=== PATIENT | male | born 1995 ===

== ENCOUNTER 2023-06-22 08:56 | Outpatient (RCR) | payer OTHER ==
[~2023-06-22 08:56] MED LIST: AMOXICILLIN 8751 TAB PO; NORCO 325 MG-51 TAB PO; PERCOCET 325 MG1 TA2 PO; TYLENOL 500MG500 MG PO
== END 2023-06-28 ==
LOC: WSOH
DX: M25.531 Pain in right wrist (principal); Y99.0 Civilian activity done for income or pay

== ENCOUNTER 2023-07-06 12:57 | Outpatient (RCR) | payer OTHER | END 2023-07-27 | disposition home or self-care (01) | LOC: WSOH | DX: S60.211D Contusion of right wrist, subsequent encounter (principal); Y99.0 Civilian activity done for income or pay ==